=== PATIENT | male | born 1985 | race African-American/Black ===

== ENCOUNTER 2025-08-09 22:36 | Emergency (ER) | payer OTHER, SELFPAY ==
[2025-08-09 22:39] VITALS: BP 156/81; PULSE 83; RESP 18; TEMP 36.7; O2SAT 97
--- NOTE | 2025-08-09 23:22 | PC.NURSE ---
report received from [facility]
[2025-08-09] MEDS: KETOROLAC (*BKC) 60 MG/2 ML VIAL IM (23:51)
--- OUTSIDE RECORDS SUMMARY | 2025-08-09 23:58 | XMS_ITS | Clinical Summary ---
Author Organization [facility] Address [address] [place] [address] Care Team Providers Care Stencil Sprayer Name Role Phone Chris Ballesteros MD Primary Care Provider [phone] Allergies No known active allergies Medications blood sugar diagnostic [facility] test stripsIndicatio ns:type 2 diabetes mellitus by [facility].(Non-Drug; Combo Route) route three times daily (before meals) and at bedtime. Fill per patient's meter Indications: type 2 diabetes mellitus 100 strip 2 Active lancets MiscIndications :type 2 diabetes mellitus three times daily (before meals) and at bedtime. Indications: type 2 diabetes mellitus 100 each 2 Active Acetone, Urine, Test (Ketone Urine Test) [facility] Strp 1 each by [facility].(Non-Drug; Combo Route) route as needed (Check in case of nausea, vomiting, abdominal pain with concern for diabetic ketoacidosis). 50 strip 1 3 Active BD Ultra-Fine Short Pen Needle 31 gauge x /16 Misc pen needle BY [facility].(NON-DRUG COMBO ROUTE) ROUTE DAILY. INDICATIONS: TYPE 2 DIABETES MELLITUS 3 Active metFORMIN SR (GLUCOPHAGE XR) 500 mg PO sustained release tablet Take 4 tablets by mouth daily. Swallow whole. 360 tablet 3 4 Active atorvastatin (LIPITOR) 40 mg PO tablet Take 1 tablet (40 mg) by mouth nightly Avoid grapefruit juice. 90 tablet 3 4 Active Jardiance 10 mg PO tablet TAKE 1 TABLET BY MOUTH EVERY MORNING 90 tablet 1 5 Active olmesartan (BENICAR) 20 mg PO tablet TAKE 1 TABLET BY MOUTH EVERY DAY 90 tablet 1 5 Active FreeStyle Karsten 3 Plus sensor Apply 1 patch topically every 10 days Use to measure glucose continuously. Do not get wet for the first 12 hours after application. 1 patch 3 5 Active Active Problems Problem Noted Date Diagnosed Date Type 2 diabetes mellitus without complications 0 03/17/2023 Overview (09/06/2024): Source: Historical Claim Chris Ballesteros Diabetic ketoacidosis withou t coma associated with diabetes mellitus due to underlying condition 06/22/2022 Obesity (BMI 30-39.9) 06/20/2022 Mixed hyperlipidemia Resolved Problems Problem Noted Date Diagnosed Date Resolved Date Moderate protein-calorie malnutrition 06/22/2022 03/17/2023 Encounters Date Type Department Care Team Description 05/29/2025 9:00 AM CDT Lab Only [facility] [place] [address] [place] [address] Type 2 diabetes mellitus without complication, without long-term current use of insulin ([facility]); Mixed hyperlipidemia 05/29/2025 8:40 AM CDT Office Visit [facility] [place] [address] [address] Chris Ballesteros MD Mixed hyperlipidemia (Primary Dx); Type 2 diabetes mellitus without complication, without long-term current use of insulin ([facility]); Obesity (BMI 30-39.9) 05/29/2025 Results Follow-Up [facility] [place] [address] [address] Chris Ballesteros MD Hemoglobin A1C Group, Comprehensive Metabolic Panel, Lipid Panel with reflex to LDL Direct from Last 3 Months Immunizations Immunization Administration Dates Next Due COVID-19 (PF)VACCINE (PFIZER /[id number] 30MCG/0.3 ml INJECTION 02/02/2021,01/13/2021 Influenza, injectable, quadrivalent, preserv chaitanya e 06/21/2020 Family History Medical History Relation Comments Diabetes Father Hypertension Mother Relation Status Comments Father Alive Mother Alive Social History Tobacco Use Types Packs/Day Years Used Date Smoking Tobacco: Never Smokeless Tobacco: Never Tobacco Cessation:Counseling Given: Not Answered Alcohol Use Standard Drinks/Week Comments Yes 4 (1 standard drink = 0.6 oz pur e alcohol) on the weekends Food Insecurity Answer Date Recorded Currently or in the past 3 m [facility], have you worried your food would run out before you had money to buy more? No 2024 In the past 12 months, have you run out of food or been unable to get more? No 05/29/2025 Transportation Needs Answer Date Record ed Currently or in the past 3 m [facility], has lack of transportation kept you from medical appointments, getting food or medicine, or providing care to a family member? No 05/29/2025 Non-Medical Transportation Needs? Not on file 05/29/2025 Employment Status Answer Date Recorded Are you currently unemployed and requesting reso urces? No 05/29/2025 Utilities Answer Date Recorded Currently or in the past 12 months, have you or household members gone without utilities (heat, water, electricity)? No 05/29/2025 Interpersonal Safety Answer Date Record ed Are you currently concerned about physical or em otional safety? No 05/29/2025 In the past 12 months, have you been hit, slapped, kicked or otherwise physically hurt by someone? No 05/29/2025 In the past 12 months, have you been humiliated or emotionally abused in other ways by your partner or ex-partner, friend/family member? No 05/29/2025 Housing Insecurity Answer Date Recorded Are you currently without housing? No 05/29/2025 Are you currently at risk of losing your housing ? No 05/29/2025 Have you been homeless in the past 12 months? No 05/29/2025 Sex and Gender Information Value Date Recorded Sex Assigned at Male 10/19/2023 11:49 AM UPPER SHAPER Legal Sex Male 7:32 PM UPPER SHAPER Gender Identity Male 10/19/2023 11:49 AM UPPER SHAPER Sexual Orientation Straight 10/19/2023 11 :49 AM UPPER SHAPER Last Filed Vital Signs Vital Sign Reading Time Taken Comments Blood Pressure 121/86 05/29/2025 8:27 AM CDT Pulse 92 05/29/2025 8:27 AM CDT Temperature 36.3 C (97.3 F) 05/29/2025 8:27 AM CDT Respiratory Rate 20 09/30/2022 8:49 AM UPPER SHAPER Oxygen Saturation 98% 05/29/2025 8:27 AM CDT Inhaled Oxygen Concentration - - Weight 108 kg (239 lb) 05/29/2025 8:23 AM CDT Height 182.9 cm (6' 0.01) 05/29/2025 8:23 AM CD T Body Mass Index 32.41 05/29/2025 8:23 AM CDT Plan of Treatment Health Maintenance Due Date Last Done Comments HIV Screening 1986 Pneumococcal 7-64 (1 of 2 - PCV) 2005 DTaP,Tdap and Td Vaccines (1 - Tdap) 2007 HPV Vaccines (Age 27-45) (1 - 3-dose SCDM series) 2013 COVID-19 Vaccine (3 - season) 2025 02/02/2021, 01/13/2021 Influenza Vaccine (#1) 2025 06/21/2020 DM: Retinopathy Screening 03/28/2026 03/28/2025 DM: Kidney Screening - Urine Albumin-Creatinine Ratio 05/29/2026 05/29/2025, 09/06/2024, 12/30/2022 DM: Kidney Screening - eGFR 05/29/202605/20, 09/06/2024, 06/22/2022, Additional history exists Hepatitis C Screening Completed 09/06/2024 Meningococcal B Aged Out No longer el igible based on patient's age to complete this topic RSV Vaccine (Pediatric) Aged Out No l onger eligible based on patient's age to complete this topic Procedures Procedure Name Priority Date/Time Associated Diagnosis Comments VITAMIN B12 Routine 05/29/2025 8:55 AM CDT Type 2 diabetes mellitus without complication, without long-term current use of insulin ([facility]) URINE MICROALBUMIN/CREATINI NE RATIO (RANDOM) Routine 05/29/2025 8:55 AM CDT Type 2 diabetes mellitus without complication, without long-term current use of insulin ([facility]) LIPID PANEL Routine 05/29/2025 8:55 AM CDT Mixed hyperlipidemia COMPREHENSIVE METABOLIC PANEL Routine 05/29/2025 8:55 AM CDT Type 2 diabetes mellitus without complication, without long-term current use of insulin ([facility]) HEMOGLOBIN A1C GROUP Routine 05/29/2025 8:55 AM CDT Type 2 diabetes mellitus without complication, without long-term current use of insulin ([facility]) HM DIABETIC EYE EXAM - NEGATIVE FOR RETINOPATHY Routine 03/28/2025 Type 2 diabetes mellitus without complication, without long-term current use of insulin ([facility]) HEPATITIS C VIRUS ANTIBODY Routine 09/06/2024 4:21 PM UPPER SHAPER Need for hepatitis C screening test from Last 3 Months or Most Recently Relevant to Health Maintenance Results * (ABNORMAL) Hemoglobin A1C Group (05/29/2025 8:55 AM CDT) Hemoglobin A1C 8.5(H) <=5.6 % 05/29/2025 9:24 AM CDT [facility] Comment:Based on [place] Di abetes Association Recommendations: Prediabetes: 5.7-6.4% Diabetes: >/= 6.5% In the absences of unequivocal hyperglycemia, result should be confirmed by repeat testing using another specimen. Average Glucose Estimate 197 See comment mg/dL 05/29/2025 9:24 AM CDT [facility] Comment:Result is an estimat ed average blood glucose derived from a large multinational prospective study conducted to determine the relationship between HbA1C results and average blood glucose levels (Diabetes Care, 2008 Au(8):2025-7532). Blood VENOUS BLOOD / Unknown Venipuncture / Unknown 05/29/2025 8:55 AM CDT 05/29/2025 8:55 AM CDT us Chris Ballesteros MD LAB BLOOD ORDERABLES Final Resul t [facility] [address] [place], [place] [address] [place] [address] * Urine Microalbumin/Creatinine Ratio (05/29/2025 8:55 AM CDT) Microalbumin, Random Urine 2.8 mg/dL 05/29/2025 10:01 AM CDT [facility] Comment:No reference (normal ) range established for random urine. Creatinine, Random Urine 120 mg/dL 05/29/2025 10:01 AM CDT [facility] Comment:No reference (normal ) range established for random urine. Microalb/Creat Ratio 23 0 - 25 ug/mg 05/29/2025 10:01 AM CDT [facility] Urine URINE / Unknown Non-blood Collection / Unknown 05/29/2025 8:55 AM CDT 05/29/2025 8:55 AM CDT Chris Ballesteros MD LAB URINE ORDERABLES Final Resul t Performing Organization Address [facility] de Phone Number [facility] [address] [phone] * (ABNORMAL) Lipid Panel with reflex to LDL Direct (05/29/2025 8:55 AM CDT) Cholesterol 256(H) <=199 mg/dL 05/29/2025 9:35 AM CDT [facility] HDL Cholesterol 42(L) 59 - 999 mg/dL 05/29/2025 9:35 AM T [facility] Non-HDL Cholesterol Calculated 214 mg/dL 05/29/2025 9:35 AM T [facility] Comment: Reference value: <130 mg/dL Non-HDL Cholesterol was calculated by subtracting HDL-Cholesterol from Total Cholesterol. LDL Cholesterol Calculation 186(H) <=100 mg/dL 05/29/2025 9:35 AM T [facility] Triglyceride 141 30 - 149 mg/dL 05/29/2025 9:35 AM CDT [facility] Blood VENOUS BLOOD / Unknown Venipuncture / Unknown 05/29/2025 8:55 AM CDT 05/29/2025 8:55 AM CDT Narrative [facility] - 05/29/2025 9:35 AM CDT ............................................................. RECOMMENDED MOD.RISK HIGH RISK UNITS ............................................................. Test: Male/Female Male/Female Male/Female CHOLESTEROL <200 200-239 >239 mg/dL HDL CHOLESTEROL >=59 40-58 <40 mg/dL LDL CHOL <100 101-159 >159 mg/dL Indirect LDL-C is calculated using the Claudy/Feng equation (STEPHEN. 2012Aug 08;310(19):2061-8.), as recommended by clinical guidelines for cholesterol management (J Am Marlon Cardiol 2019; 73:2156-6103.). This equation provides enhanced accuracy, particularly when LDL-C levels are below 70 mg/dL and triglycerides are under 400 mg/dL. Direct LDL-C measurement is recommended for triglyceride levels >/=400 mg/dL. us Chris Ballesteros MD LAB BLOOD ORDERABLES Final Resul t [facility] [address] [place], [place] [address] [phone] * (ABNORMAL) Comprehensive Metabolic Panel (05/29/2025 8:55 AM CDT) Sodium 141 137 - 147 mmol/L 05/29/2025 9:36 AM CDT [facility] Potassium 4.1 3.4 - 5.3 mmol/L 05/29/2025 9:36 AM CDT [facility] Comment:Not Hemolyzed Chloride 107 99 - 108 mmol/L 05/29/2025 9:36 AM T [facility] CO2 Total 25 22 - 29 mmol/L 05/29/2025 9:36 AM [facility] Anion Gap 9 8 - 16 05/29/2025 9:36 AM [facility] BUN 18 8 - 21 mg/dL 05/29/2025 9:36 AM [facility] Creatinine 1.19 0.75 - 1.20 mg/dL 05/29/2025 9:36 AM [facility] BUN/Creat Ratio 15.1 8.0 - 25.0 9:36 AM [facility] EGFR 80 05/29/2025 9:36 AM [facility] Glucose 181(H) 74 - 100 mg/dL 05/29/2025 9:36 AM [facility] Total Protein 8.0 6.0 - 8.2 g/dL 05/29/2025 9:36 AM [facility] Albumin 4.1 3.5 - 5.0 g/dL 05/29/2025 9:36 AM [facility] Calcium 9.8 8.7 - 10.7 mg/dL 05/29/2025 9:36 AM [facility] Calcium (Adjusted) 9.7 9.1 - 11.2 mg/dL 05/29/2025 9:36 AM [facility] Comment:Calcium result adjus raymundo for serum albumin concentration. Suggest confirmation of calcium status with an ionized calcium, if clinically indicated. Bilirubin, Total 0.7 0.2 - 1.3 mg/dL 05/29/2025 9:36 AM [facility] Alkaline Phosphatase 64 30 - 125 U/L 05/29/2025 9:36 AM [facility] AST 18 3 - 44 U/L 05/29/2025 9:36 AM [facility] ALT 21 0 - 40 U/L 05/29/2025 9:36 AM [facility] Blood VENOUS BLOOD / Unknown Venipuncture / Unknown 05/29/2025 8:55 AM CDT 05/29/2025 8:55 AM CDT Narrative [facility] - 05/29/2025 9:36 AM CDT ESTIMATED GLOMERULAR FILTRATION RATE INTERPRETATIONS FOR ALL PATIENTS eGFR Value Interpretation Units are mL/min/1.73 sq m. <15 Kidney Failure 15-29 Severely decreased 30-44 Moderately to severely decreased 40-59 Mildly to moderately decreased 60-89 Mildly decreased >=90 Normal or high Not Applicable for ages <18 The GFR estimate (eGFR) is calculated using the 2020 CKD-EPI creatinine formula. (Please visit [email or web address] for more information.) The equation has not been validated for use in women, patients with serious comorbid conditions, or persons with extremes of body size, muscle mass or nutritional status. Chris Ballesteros MD LAB BLOOD ORDERABLES Final Resul t Performing Organization Address [facility]/ZIP Co de Phone Number [facility] [address] [phone] * Vitamin B12 (05/29/2025 8:55 AM CDT) [facility] Vitamin B12 855 210 - 920 pg/mL 05/29/2025 10:25 AM CDT [facility] Blood VENOUS BLOOD / Unknown Venipuncture / Unknown 05/29/2025 8:55 AM CDT 05/29/2025 8:55 AM CDT Chris Ballesteros MD LAB BLOOD ORDERABLES Final Resul t Performing Organization Address [facility] de Phone Number [facility] [address] [phone] * DIABETIC EYE EXAM - NEGATIVE FOR RETINOPATHY (03/28/2025) [facility] Diabetic Eye Exam - Negative Retinopathy Yes Negative = No Evidence of Retinopathy PHYSICIAN BACK OFFICE Comment:JOSE Baptiste Anatomical Region Laterality Modality Other Unknown Provider HEALTH MAINTENANCE Final Result * Hepatitis C Virus Antibody RML (09/06/2024 4:21 PM UPPER SHAPER) [facility] Hepatitis C Virus Antibody Not Detected Not Detected 09/06/2024 5:15 PM UPPER SHAPER [facility] Blood VENOUS BLOOD / Unknown Venipuncture / Unknown 09/06/2024 4:21 PM UPPER SHAPER 09/06/2024 4:21 PM UPPER SHAPER Narrative [facility] - 09/06/2024 5:15 PM UPPER SHAPER Antibodies to HCV not detected. This does not exclude the possibility of exposure to HCV. us Chris Ballesteros MD LAB BLOOD ORDERABLES Final Resul t [facility] [address] [place], [place] [address] [phone] from Last 3 Months or Most Recently Relevant to Health Maintenance Insurance AETNA AETNA Advance Directives * Full Code (Latest Code Status on File) Date Activated Date Inactivated Comments 06/20/2022 7:24 PM Care Teams Stencil Sprayer Relationship Specialty Start Date End Date Chris Ballesteros MD PCP - General Internal Medicine 03/17/23
--- OUTSIDE RECORDS SUMMARY | 2025-08-09 23:58 | XMS_ITS | Encounter Summary ---
Author Organization [facility] Address [address] [place] [address] Care Team Providers Care Learning Center Coordinator Name Role Phone Chris Ballesteros MD Primary Care Provider [phone] Reason for Visit * Reason Onset Date Comments Refill Request 03/15/2024 Encounter Details Date Type Department Care Team (Late st Contact Info) Description 03/15/2024 Refill [facility] [address] [place] [address] Chris Ballesteros MD [address] [place] [address] Refill Request Social History Tobacco Use Types Packs/Day Years Used Date Smoking Tobacco: Never Smokeless Tobacco: Never Alcohol Use Standard Drinks/Week Comments Yes 6 (1 standard drink = 0.6 oz pur e alcohol) on the weekends Sex and Gender Information Value Date Recorded Sex Assigned at Male 10/19/2023 11:49 AM ACADEMIC ADVISING DIRECTOR Legal Sex Male 7:32 PM ACADEMIC ADVISING DIRECTOR Gender Identity Male 10/19/2023 11:49 AM ACADEMIC ADVISING DIRECTOR Sexual Orientation Straight 10/19/2023 11 :49 AM ACADEMIC ADVISING DIRECTOR documented as of this encounter Miscellaneous Notes * Telephone Encounter - Kya Haq RN - 03/15/2024 12:49 AM CDT Last office visit 03/17/23. Protocol failed: due for annual exam/labs Requested medication(s) are due for refill today: yes Requested medication(s) are on the active medication list: yes Patient has already received a courtesy refill: yes Other reason request has been forwarded to provider: previous courtesy given. Appt requested documented in this encounter Plan of Treatment Not on file documented as of this encounter Visit Diagnoses Not on filedocumented in this encounter Additional Health Concerns Assessment Noted Time PHQ-2 Depression Total Score: 2 10/21/19 24 10:29 AM ACADEMIC ADVISING DIRECTOR documented as of this encounter Care Teams Learning Center Coordinator Relationship Specialty Start Date End Date Chris Ballesteros MD PCP - General Internal Medicine 03/17/23 documented as of this encounter
[2025-08-10] MEDS: LIDOCAINE 2% VISC SOLN 30 ML, ALUMINUM/MAGNESIUM/SIMETH SUSP 30 ML, diphenhydrAMINE HCl... PO (00:13)
[2025-08-10 01:07] VITALS: BP 160/80; PULSE 73; O2SAT 100
--- NOTE | 2025-08-10 02:04 | ED.GENADULT ---
HPI - General Adult General Chief complaint: Dental/Oral Stated complaint: R gum pain Time Seen by Provider: 08/09/25 23:01 History of Present Illness HPI narrative: 40-year-old male presenting with diffuse gingival pain after his last meal. Reports the pain radiates to his advent. Denies dysphagia, macroglossia, chest pain/shortness of breath. Related Data Allergies Allergy/AdvReac Type Severity Reaction Status Date / Time No Known Allergies Allergy Verified 08/09/25 22:43 Review of Systems Review of Systems: All systems reviewed & are unremarkable except as noted in HPI and below Exam Narrative: GENERAL: Uncomfortable-appearing. HEAD: Normocephalic, atraumatic. EYES: PERRLA and EOMI. ENT: Nares clear, no rhinorrhea or epistaxis. Mucous membranes moist. Oropharynx without tonsillar hypertrophy exudate or other lesions. Bilateral TMs pearly armstrong non-bulging NECK: Supple. No adenopathy or masses. No carotid bruits or JVD CHEST: Clear to auscultation. No respiratory distress. No wheezes rales or rhonchi HEART: Regular rate and rhythm. No murmur heard. Normal peripheral pulses. ABDOMEN: Soft, nontender, nondistended, normal active bowel sounds. EXTREMITIES: Normal range of motion. No edema. SKIN: Warm, dry, no rash. NEURO: No focal deficits. Alert and oriented x3. PSYCH: Normal mood and affect Course Vital Signs Vital signs: Vital Signs Temperature 98.0 F 08/09/25 22:39 Pulse Rate 83 08/09/25 22:39 Respiratory Rate 18 08/09/25 22:39 Blood Pressure 156/81 H 08/09/25 22:39 Pulse Oximetry 97 08/09/25 22:39 Oxygen Delivery Room Air 08/09/25 22:39 Temperature 98.0 F 08/09/25 22:39 Pulse Rate 73 08/10/25 01:07 Respiratory Rate 18 08/09/25 22:39 Blood Pressure 160/80 H 08/10/25 01:07 Pulse Oximetry 100 08/10/25 01:07 Oxygen Delivery Room Air 08/09/25 22:39 Medical Decision Making [facility] Narrative Medical decision making narrative: 40-year-old male presenting with diffuse gingival pain after his last meal. Reports the pain radiates to his advent. Denies dysphagia, macroglossia, chest pain/shortness of breath, or any other allergic reaction symptoms. Patient states he has a history of sensitive gums. Exam of the mouth reveals no erythema, edema, ulcers, or other abnormalities. Administered viscous lidocaine and Toradol which improved patient's symptoms. Advised follow-up with his dentist and PCP. Given reasons to return. Medical Records Medical records reviewed: Yes I reviewed the external patient's medical records. Vital Signs Vital Signs: Vital Signs Temperature 98.0 F 08/09/25 22:39 Pulse Rate 83 08/09/25 22:39 Respiratory Rate 18 08/09/25 22:39 Blood Pressure 156/81 H 08/09/25 22:39 Pulse Oximetry 97 08/09/25 22:39 Oxygen Delivery Room Air 08/09/25 22:39 Temperature 98.0 F 08/09/25 22:39 Pulse Rate 73 08/10/25 01:07 Respiratory Rate 18 08/09/25 22:39 Blood Pressure 160/80 H 08/10/25 01:07 Pulse Oximetry 100 08/10/25 01:07 Oxygen Delivery Room Air 08/09/25 22:39 Discharge Plan Discharge Clinical Impression: Pain of gingiva Patient Disposition: Home Condition: Stable Additional Instructions: Return to the Emergency Department if you experience fever >101, increasing swelling and redness of your gums, or any other symptoms that are concerning to you. Tylenol or Ibuprofen as needed for pain. Follow up with your dentist. Follow-up with our PCP for any other general concerns. Patient Language: [place] Sudanese Follow-up/Referrals: PHYSICIAN,[employer] [Primary Care Provider, Internal Medicine] Stand Alone Forms: Work/School Release IP
== END 2025-08-10 01:11 | disposition home or self-care (01) ==
DX: K06.8 Other specified disorders of gingiva and edentulous alveolar ridge (principal)
CPT/HCPCS: 96372; 99283; A9270; J1885